=== PATIENT | male | born 1985 | race Caucasian/White ===

== ENCOUNTER 2017-10-24 16:05 | Emergency (ER) | payer OTHER, MEDICAID ==
[~2017-10-24] VITALS: Ht 170.2 cm; Wt 108.0 kg
[~2017-10-24 16:05] MED LIST: APAP/HYDROCODON1 T13 PO; BACO TOP; BACTRIM DS1 TAB PO; CLINDAMYCIN HC300 MG PO; COL100 PO; COUMADIN5 MG PO; FLO4 PO; HIBICLENS118 ML TOP; IBUPROFEN400 MG PO; KEFLEX500 MG PO; LAC PO
[2017-10-24 16:10] VITALS: Ht 170.2 cm; Wt 108.0 kg
[2017-10-24 16:58] LABS: BASOPHIL % 0.3 % (0-2); PLATELET COUNT 208 x10^3mcL (130-400); RED CELL DISTRIBUTION WIDTH 13.2 % (11.5-14.5)
[2017-10-24 17:02] LABS: CALCIUM 8.8 mg/dL (8.5-10.1); CARBON DIOXIDE 29.3 mmol/L (21-32); CHLORIDE SERUM 101 mmol/L (98-107); CREATININE SERUM 0.9 mg/dL (0.7-1.3); GFR1 > 60 mL/min; GLUCOSE SERUM 90 mg/dL (74-106); POTASSIUM SERUM 4.1 mmol/L (3.5-5.1); SODIUM SERUM 137 mmol/L (136-145)
[2017-10-24 17:07] LABS: ALBUMIN 3.6 g/dL (3.4-5.0); ALKALINE PHOSPHATASE 116 U/L (46-116); ALT/SGPT 24 U/L (16-63); AST/SGOT 16 U/L (15-37); BILIRUBIN TOTAL 0.3 mg/dL (0.20-1.00); TOTAL PROTEIN, SERUM 8.1 g/dL (6.4-8.2)
[2017-10-24 19:34] VITALS: BP 117/73
== END 2017-10-24 19:34 | disposition home or self-care (01) ==
LOC: ED 16:05
PROVIDERS: Emergency Medicine
DX: R09.1 Pleurisy (principal); K21.9 Gastro-esophageal reflux disease without esophagitis
CPT/HCPCS: 87491; 87591; J1885

== ENCOUNTER 2018-04-21 17:47 | Emergency (ER) | payer OTHER ==
[~2018-04-21] VITALS: Ht 170.2 cm; Wt 84.8 kg
[2018-04-21 18:04] VITALS: Ht 170.2 cm; Wt 84.8 kg
[2018-04-21 21:19] VITALS: BP 133/79
== END 2018-04-21 21:19 | disposition home or self-care (01) ==
LOC: ED 17:47
DX: L02.413 Cutaneous abscess of right upper limb (principal); F17.210 Nicotine dependence, cigarettes, uncomplicated
CPT/HCPCS: Q0092

== ENCOUNTER 2019-01-20 18:46 | Inpatient (IN) | payer OTHER ==
[~2019-01-20] VITALS: Ht 170.2 cm; Wt 82.1 kg
[2019-01-20 21:49] LABS: BASOPHIL % 0.1 % (0-2); PLATELET COUNT 285 x10^3mcL (130-400); RED CELL DISTRIBUTION WIDTH 12.7 % (11.5-14.5)
[2019-01-20 22:03] LABS: CARBON DIOXIDE 29.2 mmol/L (21-32); CHLORIDE SERUM 99 mmol/L (98-107); GFR1 > 60 mL/min; GLUCOSE SERUM 104 mg/dL (74-106); POTASSIUM SERUM 3.9 mmol/L (3.5-5.1); SODIUM SERUM 137 mmol/L (136-145)
[2019-01-20 22:07] LABS: ALKALINE PHOSPHATASE 114 U/L (46-116); ALT/SGPT 137 U/L (16-63); AST/SGOT 26 U/L (15-37); BILIRUBIN TOTAL 0.4 mg/dL (0.20-1.00)
[2019-01-20 22:08] LABS: ALBUMIN 3.3 g/dL (3.4-5.0); TOTAL PROTEIN, SERUM 8.3 g/dL (6.4-8.2)
[2019-01-20 23:11] LABS: CHOLESTEROL/HDL RATIO 2.6; MAGNESIUM 1.9 mg/dL (1.8-2.4); PHOSPHOROUS 2.8 mg/dL (2.5-4.9)
[2019-01-20 23:18] LABS: FREE T4 1.02 ng/dL (0.76-1.46); FREE THYROXINE INDEX 2.5 ug/dL (1.4-4.5); T4(THYROXINE) 7.6 ug/dL (4.7-13.3)
[2019-01-21] VITALS (8 sets, daily range): BP systolic 97–172; BP diastolic 50–78
[2019-01-21 00:17] LABS: T3 TOTAL 1.41 ng/mL
[2019-01-21 07:20] LABS: BASOPHIL % 0.6 % (0-2); PLATELET COUNT 226 x10^3mcL (130-400); RED CELL DISTRIBUTION WIDTH 13.1 % (11.5-14.5)
[2019-01-21 07:28] LABS: CALCIUM 7.9 mg/dL (8.5-10.1); CARBON DIOXIDE 29.4 mmol/L (21-32); CHLORIDE SERUM 110 mmol/L (98-107); CREATININE SERUM 0.8 mg/dL (0.7-1.3); GFR1 > 60 mL/min; GLUCOSE SERUM 107 mg/dL (74-106); POTASSIUM SERUM 4.1 mmol/L (3.5-5.1); SODIUM SERUM 143 mmol/L (136-145)
[2019-01-21 11:38] LABS: microscopic required? NO
[2019-01-21 11:52] LABS: UA SPECIFIC GRAVITY 1.025 (1.005-1.035); urine erythrocyte NEGATIVE (NEGATIVE)
[2019-01-21 12:03] LABS: AMPHETAMINE QUAL UR POSITIVE (See below)
[2019-01-22 05:03] VITALS: BP 112/69
[2019-01-22 08:13] LABS: BASOPHIL % 0.7 % (0-2); PLATELET COUNT 259 x10^3mcL (130-400); RED CELL DISTRIBUTION WIDTH 13.3 % (11.5-14.5)
[2019-01-22 08:14] VITALS: BP 107/80
[2019-01-22 08:33] LABS: CALCIUM 8.6 mg/dL (8.5-10.1); CARBON DIOXIDE 32.8 mmol/L (21-32); CHLORIDE SERUM 104 mmol/L (98-107); CREATININE SERUM 0.8 mg/dL (0.7-1.3); GFR1 > 60 mL/min; GLUCOSE SERUM 81 mg/dL (74-106); POTASSIUM SERUM 4.5 mmol/L (3.5-5.1); SODIUM SERUM 140 mmol/L (136-145)
[2019-01-22 11:54] VITALS: BP 102/60
[2019-01-22 16:19] VITALS: BP 103/61
[2019-01-22 18:00] VITALS: BP 116/66
[2019-01-23 05:39] VITALS: BP 93/63
[2019-01-23 08:10] VITALS: BP 109/71
[2019-01-23 12:14] VITALS: BP 116/72
[2019-01-23 16:38] VITALS: BP 105/62
[2019-01-23 19:42] VITALS: BP 119/66
[2019-01-24 04:43] VITALS: BP 115/67
[2019-01-24 06:34] LABS: BASOPHIL % 0.6 % (0-2); PLATELET COUNT 329 x10^3mcL (130-400); RED CELL DISTRIBUTION WIDTH 13.1 % (11.5-14.5)
[2019-01-24 06:55] LABS: CALCIUM 8.9 mg/dL (8.5-10.1); CARBON DIOXIDE 31.1 mmol/L (21-32); CHLORIDE SERUM 104 mmol/L (98-107); GFR1 > 60 mL/min; GLUCOSE SERUM 83 mg/dL (74-106); MAGNESIUM 2.2 mg/dL (1.8-2.4); PHOSPHOROUS 3.3 mg/dL (2.5-4.9); POTASSIUM SERUM 4.6 mmol/L (3.5-5.1); SODIUM SERUM 139 mmol/L (136-145)
[2019-01-24 07:41] VITALS: BP 105/60
[2019-01-24] MEDS ORDERED: BACTRIM DS1 TAB PO (09:06)
[2019-01-24 11:48] VITALS: BP 122/78
[2019-01-24 11:52] VITALS: BP 122/78
[2019-01-24 12:27] VITALS: BP 122/78
== END 2019-01-24 13:34 | disposition home or self-care (01) | DRG 872 ==
LOC: ED 18:46 → MU 22:36
PROVIDERS: Emergency Medicine; ADMIT Internal Medicine
DX: A41.9 Sepsis, unspecified organism (principal); L03.115 Cellulitis of right lower limb; E44.1 Mild protein-calorie malnutrition; R74.0 Nonspecific elevation of levels of transaminase and lactic acid dehydrogenase [LDH]; A49.02 Methicillin resistant Staphylococcus aureus infection, unspecified site; Z98.1 Arthrodesis status; F17.210 Nicotine dependence, cigarettes, uncomplicated
CPT/HCPCS: 84439; J0696; J2270; J2543; J3370; J7030; Q0092

== ENCOUNTER 2019-07-07 16:45 | Inpatient (IN) | payer OTHER, MEDICAID ==
[~2019-07-07] VITALS: Ht 170.2 cm; Wt 80.3 kg
[2019-07-07 16:51] VITALS: Ht 170.2 cm; Wt 80.3 kg
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
[2019-07-07 17:28] LABS: BASOPHIL % 0.8 % (0-2); PLATELET COUNT 395 x10^3mcL (130-400); RED CELL DISTRIBUTION WIDTH 12.6 % (11.5-14.5)
[2019-07-07 17:37] LABS: CALCIUM 8.8 mg/dL (8.5-10.1); CARBON DIOXIDE 29.3 mmol/L (21-32); CHLORIDE SERUM 99 mmol/L (98-107); CREATININE SERUM 1.1 mg/dL (0.7-1.3); GFR1 > 60 mL/min; GLUCOSE SERUM 143 mg/dL (74-106); POTASSIUM SERUM 3.9 mmol/L (3.5-5.1); SODIUM SERUM 135 mmol/L (136-145)
[2019-07-07 17:42] LABS: ALKALINE PHOSPHATASE 78 U/L (46-116); ALT/SGPT 17 U/L (16-63); AST/SGOT 14 U/L (15-37); BILIRUBIN TOTAL 0.3 mg/dL (0.20-1.00); C REACTIVE PROTEIN 11.6 mg/dL (<=0.9); URIC ACID 4.1 mg/dL (3.5-7.2)
[2019-07-07 17:45] LABS: ALBUMIN 2.7 g/dL (3.4-5.0); TOTAL PROTEIN, SERUM 8.9 g/dL (6.4-8.2)
--- NOTE | 2019-07-07 17:51 | NUR ---
PT RESTING IN POSITION OF COMFORT, IN NAD, RESPS E/U, AX INFUSING PER EMAR AND MD ORDER, WILL CONTINUE TO MONITOR
--- NOTE | 2019-07-07 18:00 | NUR ---
PT REQUESTING PAIN MEDICATION MD GROSS MADE AWARE
[2019-07-07 18:17] LABS: ERYTHROCYTE SED RATE 88 mm/hr (0-15)
--- NOTE | 2019-07-07 18:42 | NUR ---
BEATA CORRIGAN AT BEDSIDE PERFORMING ABSCESS I & D PROCEDURE
--- NOTE | 2019-07-07 18:52 | NUR ---
WOUND CULTURE COLLECTED AND SENT TO LAB
--- NOTE | 2019-07-07 19:22 | NUR ---
WOUND PHOTOGRAPH OF RIGHT HEEL TAKEN PLACED IN PT CHART
[2019-07-07 20:12] VITALS: BP 114/76
--- NOTE | 2019-07-07 20:26 | NUR ---
RECEIVED PT FROM ER, PT ADMIT FOR RIGHT FOOT INFECTION/ABSCESS, PT IS A/O X4, VERBAL RESPONSIVE, ABLE TO TELL WHAT HE NEEDS. LUNG SOUND CLEAR BILATERAL, NO COUGH, NO SOB, PT DENY ANY CHEST PAIN OR DISCOMFORT, BOWEL SOUND PRESENT ALL 4 QUADRANTS, NO DISTENTION, NO TENDER. PEDAL PULSE PRESENT BOTH FEET, THERE IS TRACE EDEMA AT RLL, OPEN WOUND AT RIGHT HEEL, COVERED WITH DRY DRESSING, IV AT LEFT HAND, NO LEAKING, NO INFILTRATION. ALL ADLS ASSIST, ALL NEED MET, CALL LIGHT IN REACH, WILL CONTINUE TO MONITOR.
--- NOTE | 2019-07-07 20:50 | NUR ---
PT COMPLAINING OF PAIN IN FOOT AT THIS TIME. PAGED RESIDENT.
--- NOTE | 2019-07-07 23:29 | NUR ---
PT RESTING IN BED WITH EYES CLOSED. NO USE OF ACCESSORY MUSCLES AND NO LABORED BREATHING. PT DOES NOT APPEAR TO BE IN ANY DISTRESS AT THIS TIME. SAFETY MEASURES ARE IN PLACE. CALL LIGHT WITHIN REACH. WILL MONITOR.
--- NOTE | 2019-07-08 02:17 | NUR ---
NO ACUTE DISTRESS NOTED AT THIS TIME. PT RESTING IN BED WITH EYES CLOSED. BREATHING EVEN AND UNLABORED
[2019-07-08 06:05] VITALS: BP 107/76
[2019-07-08 06:52] LABS: BASOPHIL % 0.9 % (0-2); PLATELET COUNT 375 x10^3mcL (130-400); RED CELL DISTRIBUTION WIDTH 12.7 % (11.5-14.5)
[2019-07-08 07:09] LABS: CALCIUM 8.7 mg/dL (8.5-10.1); CARBON DIOXIDE 33.5 mmol/L (21-32); CHLORIDE SERUM 102 mmol/L (98-107); CREATININE SERUM 1.1 mg/dL (0.7-1.3); GFR1 > 60 mL/min; GLUCOSE SERUM 87 mg/dL (74-106); POTASSIUM SERUM 4.2 mmol/L (3.5-5.1); SODIUM SERUM 137 mmol/L (136-145)
--- NOTE | 2019-07-08 07:30 | NUR ---
ASSUMED CARE OF PATIENT. ALERT AND AWAKE THIS MORNING WITH 3/10 PAIN, MEDICATED BY NIGHT NURSE PER EMAR. NO APPARENT DISTRESS THIS MORNING. IV LEFT HAND SALINE LOCKED. DRESSING TO RIGHT HEEL CDI. WILL CONTINUE TO MONITOR.
[2019-07-08 08:26] VITALS: BP 95/56
--- NOTE | 2019-07-08 09:14 | NUR ---
PATIENT RESTING IN ROOM WITH MILD DISCOMFORT IN RIGHT FOOT. NO APPARENT DISTRESS NOTED. DRESSING REMAINS CDI. NO NEW ISSUES.
--- NOTE | 2019-07-08 12:50 | NUR ---
PATIENT IN BED. WHEN ASKED ABOUT PAIN, STATES HE "FEELS BETTER." NO APPARENT DISTRESS NOTED. DRESSING REMAINS CDI. PHARMACY CALLED FOR ZOSYN, STATES MEDICATION WILL BE DELIVERED IN 10-15 MINUTES. NO NEW ISSUES.
--- NOTE | 2019-07-08 13:17 | NUR ---
PATIENT COMPLAINING OF 5/10 RIGHT FOOT PAIN. PRN MARCELINO PROVIDED.
[2019-07-08 17:32] VITALS: BP 104/70
--- NOTE | 2019-07-08 18:39 | NUR ---
PATIENT RESTING IN BED WITH NO COMPLAINTS OF PAIN OR DISCOMFORT. NO APPARENT DISTRESS NOTED. DRESSING CDI. WILL ENDORSE CARE TO ONCOMING RN.
--- NOTE | 2019-07-08 19:30 | NUR ---
PT RECIEVED FROM DAY NURSE. PT RESTING IN BED AT THIS TIME. DENIES PAIN OR DISCOMFORT AT THIS TIME. A/O X4, CALM AND COOPERTIVE AT THIS TIME. PT M/S, DENIES CP, DIZZINESS, NV, AND PALPATATIONS AT THIS TIME. PALPABLE PULSES, NO EDEMA NOTED. BREATHING E/U, DENIES SOB. ABD SOFT AND ROUND, DENIES PAIN TO PALPATION. AMBULATES WITH CRUTCHES AT BEDSIDE. R HEEL WOUND, DRESSING CDI. LH IV, INTACT. ALL QUESTIONS AND CONCERNS ADRESSED AT THIS TIME. BED AT LOWEST POSITION. CALL LIGHT WITHIN REACH. WILL CONTINUE TO MONITOR.
[2019-07-08 21:24] VITALS: BP 104/69
--- NOTE | 2019-07-09 00:53 | NUR ---
PT RESTING IN BED AT THIS TIME. DENIES PAIN OR DISCOMFORT. BREATHING E/U ON RA. NO SIGNS OF ACUTE DISTRESS NOTED AT THIS TIME. WILL CONTINUE TO MONITOR.
[2019-07-09 05:05] VITALS: BP 100/62
--- NOTE | 2019-07-09 06:17 | NUR ---
PT RESTING IN BED AT THIS TIME. DENIES PAIN OR DISCOMFORT. BREATHING E/U ON RA. NO SIGNS OF ACUTE DISTRESS NOTED AT THIS TIME. ALL NEEDS AND CONCERNS ADDRESSED THIS SHIFT. BED AT LOWEST POSITION. CALL LIGHT WITHIN REACH. WILL ENDORSE TO DAY NURSE.
[2019-07-09 06:39] LABS: C REACTIVE PROTEIN 5.5 mg/dL (<=0.9); CALCIUM 8.8 mg/dL (8.5-10.1); CARBON DIOXIDE 30.5 mmol/L (21-32); CHLORIDE SERUM 105 mmol/L (98-107); CREATININE SERUM 1.3 mg/dL (0.7-1.3); GFR1 > 60 mL/min; GLUCOSE SERUM 87 mg/dL (74-106); MAGNESIUM 2.4 mg/dL (1.8-2.4); PHOSPHOROUS 4.3 mg/dL (2.5-4.9); POTASSIUM SERUM 4.5 mmol/L (3.5-5.1); SODIUM SERUM 141 mmol/L (136-145)
[2019-07-09 07:04] LABS: BASOPHIL % 0.4 % (0-2); PLATELET COUNT 400 x10^3mcL (130-400); RED CELL DISTRIBUTION WIDTH 13.2 % (11.5-14.5)
--- NOTE | 2019-07-09 07:30 | NUR ---
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 PATIENT IS ALERT AND ORIENTED ABLE TO VERBLIZE NEEDS WELL. HL PATENT LEFT HAND. NO RESP DISTRESS NOTED. LUNGS CLEAR ON ROOM AIR. VOINDING WELL USES URINAL LBM WITH 2 DAYS AGO PER PATIENT. DRESSING ON RIGHT FOOT CLEAN AND DRY. TOES ON RT FOOT WARM TO TOUCH, PT UNABLE TO WIGGLE TOES AT THIS TIME. RT HEEL FLOATED ELEVATED UP ON PILLOW. DENIES ANY PAIN OR DISCOMFORT AT THIS TIME. TRACE EDEMA NOTED ON RLE. PATIENT HAS CRUTCHES AT BEDSIDE FOR AMBULATION AND REMINDED NOT TO BEAR WT ON RT FOOT AT ALL. PT VERBLIZED UNDERSTANDING. CALL LIGHT WITHIN REACH AND BED IN LOW POSITION.
[2019-07-09 07:36] VITALS: BP 104/63
[2019-07-09 07:36] LABS: microscopic required? YES; urine erythrocyte 1+ (NEGATIVE)
--- NOTE | 2019-07-09 11:22 | NUR ---
PATIENT REMAINS IN BED WITH RT FOOT ELEVATED OFF MATTRESS WITH A PILLOW. APPEARS TO BE RESTING WELL. NO C/O PAIN OR DISCOMFORT.
--- NOTE | 2019-07-09 14:33 | NUR ---
PATIENT REMAINS IN BED, CONTINUES TO DENY ANY PAIN OR DISCOMFORT. RT FOOT ELEVATED UP ON PILLOW WITH HEAL OFF LOADED. NO ACUTE DISTRESS NOTED. CONDITION APPEARS UNCHANGED.
--- NOTE | 2019-07-09 15:22 | NUR ---
HEEL PROTECTOR APPLIED TO RT FOOT. PATIENT REMAINS IN BED, APPEARS TO BE RESTING WELL. DENIES ANY PAIN OR DISCOMFORT AT THIS TIME.
[2019-07-09 15:45] VITALS: BP 103/65
--- NOTE | 2019-07-09 16:07 | NUR ---
PHYSICAL THERAPIST AT BEDSIDE TO SEE PATIENT AT THIS TIME.
--- NOTE | 2019-07-09 16:45 | NUR ---
PATIENT C/O RT FOOT PAIN 5/10 ON THE PAIN SCALE. WILL BE MEDICATED WITH NORCO PO ORDERED. WILL MONITOR FOR EFFECT.
[2019-07-09 19:15] VITALS: BP 97/52
--- NOTE | 2019-07-09 19:50 | NUR ---
PT CURRENTLY RESTING IN BED, NO ACUTE DISTRESS. A/O X4. NO TELE, MED/SURG. DENIES CHEST PAIN. PULSES PALPABLE IN ALL EXTREMITIES, RLE TRACE EDEMA NOTED. LUNG SOUNDS CTA BILATERALLY, DENIES SOB. BOWEL SOUNDS ACTIVE, LAST BM 07/09/19. VOIDING WELL. NWB TO RIGHT FOOT, AMBULATORY WITH CRUTCHES. RIGHT FOOT WOUND, DRESSING CDI, HEEL PROTECTOR IN PLACE. IV PATENT AND INTACT. BED IN LOWEST POSITION, SIDE RAILS UP X2, CALL LIGHT WITHIN REACH. WILL CONTINUE TO MONITOR.
--- NOTE | 2019-07-09 23:54 | NUR ---
PT CURRENTLY RESTING IN BED, NO ACUTE DISTRESS. WILL CONTINUE TO MONITOR.
--- NOTE | 2019-07-10 00:20 | NUR ---
ENDORSED CARE TO DELMY AKBAR.
--- NOTE | 2019-07-10 00:30 | NUR ---
RECEIVED PT FROM NAOMIE CLEMENT, PT LAYING DOWN IN BED WITH EYES CLOSED. BREATHING EVEN AND UNLABORED ON RA. NO ACUTE DISTRESS NOTED. BED AT LOWEST SETTITING, SIDE RAILS X2 UP. CALL LIGHT WITHING REACH. WILL CONTINUE TO MONITOR.
[2019-07-10 05:19] VITALS: BP 94/53
--- NOTE | 2019-07-10 05:55 | NUR ---
PT SLEPT AT INTERVALS THROGHOUT THE SHIFT. BREATHING EVEN AND UNLABORED ON RA. NO ACUTE DISTRESS NOTED. NO COMPLAINS OF PAIN. ALL NEEDS ASSESSED AND ATTENDED TO. NO SIGNIFICANT CHANGE DURING SHIFT. BED AT LOWEST SETTING. SIDE RAILS X2 UP. CALL LIGHT WITHING REACH. WILL ENDORSE CARE TO AM NURSE.
[2019-07-10 06:07] LABS: BASOPHIL % 0.7 % (0-2)
[2019-07-10 06:55] LABS: CALCIUM 8.8 mg/dL (8.5-10.1); CARBON DIOXIDE 35.2 mmol/L (21-32); CHLORIDE SERUM 105 mmol/L (98-107); CREATININE SERUM 1.2 mg/dL (0.7-1.3); GFR1 > 60 mL/min; GLUCOSE SERUM 86 mg/dL (74-106); MAGNESIUM 2.3 mg/dL (1.8-2.4); PHOSPHOROUS 3.8 mg/dL (2.5-4.9); POTASSIUM SERUM 4.7 mmol/L (3.5-5.1); SODIUM SERUM 143 mmol/L (136-145)
[2019-07-10 07:16] VITALS: BP 97/61
--- NOTE | 2019-07-10 07:18 | NUR ---
CARE ENDORSED TO ANJANA AKBAR
[2019-07-10 07:24] LABS: PLATELET COUNT 420 x10^3mcL (130-400)
--- NOTE | 2019-07-10 07:40 | NUR ---
RECEIVED AWAKE, ALERT AND ORIENTED. IN NO RESP. DISTRESS. VS STABLE. IVF INFUSING WELL AND SITE CLEAR. NO C/O PAIN OR DISCOMFORT AT THIS TIME. CALL LIGHT WITHIN REACH. WILL CONTINUE WITH PLAN OF CARE.
--- NOTE | 2019-07-10 09:36 | NUR ---
C/O RLE PAIN /, MEDICATED WITH NORCO PER PRN ORDER.
--- NOTE | 2019-07-10 12:49 | NUR ---
RESTING IN BED, NO RESP. DISTRESS NOTED. DENIES PAIN AT THIS TIME. RLE ELEVETED WITH PILLOW.
[2019-07-10 16:44] VITALS: BP 100/65
--- NOTE | 2019-07-10 16:51 | NUR ---
C/O RLE, 08/12, MEDICATED WITH NORCO PER ORDER.
--- NOTE | 2019-07-10 18:21 | NUR ---
REMAINS IN NO DISTRESS, AWAKE AND ALERT. NO CHANGES IN VS. NO C/O PAIN OR DISCOMFORT. HL PATENT. DRESSING TO RLE INTACT. CALL LIGHT WITHIN REACH.
[2019-07-10] MEDS ORDERED: LEVAQUIN750 MG PO (18:34)
[2019-07-10 18:37] VITALS: BP 100/65
--- NOTE | 2019-07-10 19:04 | NUR ---
PT DC'D HOME WITH FAMILY IN NO DISTRESS. AWAKE AND ALERT.PT/FAMILY INSTRUCTED TO NWB TO RLE AND USE CRUTCHES WHEN AMBULATING. VERBALIZED UNDERSTANDING. NO C/O PAIN OR DISCOMFORT AT THIS TIME. PERSONAL BELONGINGS TAKEN HOME.
== END 2019-07-10 19:02 | disposition home or self-care (01) | DRG 592 ==
LOC: ED 16:45 → MU 18:37
PROVIDERS: Emergency Medicine; ADMIT Internal Medicine
DX: L97.415 Non-pressure chronic ulcer of right heel and midfoot with muscle involvement without evidence of necrosis (principal); E43 Unspecified severe protein-calorie malnutrition; L03.115 Cellulitis of right lower limb; E87.1 Hypo-osmolality and hyponatremia; F17.210 Nicotine dependence, cigarettes, uncomplicated; Z68.25 Body mass index [BMI] 25.0-25.9, adult; Z86.14 Personal history of Methicillin resistant Staphylococcus aureus infection
CPT/HCPCS: 97116-GP; G0378; J1885; J2001; J2543; J3370; J7050; Q0092